=== PATIENT | female | born 1990 | race Caucasian/White ===

== ENCOUNTER 2020-10-23 10:02 | Outpatient (REF) | payer OTHER, SELFPAY ==
[2020-10-28 00:57] LABS: HPV 16 RNA NOT DETECTED (NOT DETECTED); HPV mRNA E6/E7 rflx Detected (Not Detected)
== END 2020-10-23 10:03 | disposition home or self-care (01) ==
LOC: HO.LAB 10:02
PROVIDERS: PCP Family Medicine; Visit Provider Advanced Practice Midwife
DX: Z12.4 Encounter for screening for malignant neoplasm of cervix (principal)
CPT/HCPCS: 36415; 87624; 87625; 88141; 88142

== ENCOUNTER 2021-10-29 09:17 | Outpatient (REF) | payer MEDICAID, SELFPAY ==
[2021-10-29 11:50] LABS: Thyroid Stimulating Hormone 0.88 uIU/mL (0.32-4.0)
[2021-11-01 01:45] LABS: HPV mRNA E6/E7 Not Detected (Not Detected)
== END 2021-10-29 09:18 | disposition home or self-care (01) ==
LOC: HO.LAB 09:17
PROVIDERS: PCP Family Medicine; Visit Provider Advanced Practice Midwife
DX: Z01.411 Encounter for gynecological examination (general) (routine) with abnormal findings (principal); Z11.51 Encounter for screening for human papillomavirus (HPV); R63.0 Anorexia; R63.5 Abnormal weight gain
CPT/HCPCS: 36415; 84443; 87624; 88142

== ENCOUNTER 2023-01-29 09:51 | Outpatient (REF) | payer OTHER, SELFPAY ==
[2023-01-29 18:31] LABS: CT PCR NOT DETECTED (Not Detect.); NG PCR NOT DETECTED (Not Detect.)
[2023-01-31 19:54] LABS: HPV 16 RNA NOT DETECTED (NOT DETECTED); HPV mRNA E6/E7 rflx Detected (Not Detected)
== END 2023-01-29 09:52 | disposition home or self-care (01) ==
LOC: HO.LNP 09:51
PROVIDERS: Visit Provider Advanced Practice Midwife
DX: Z01.419 Encounter for gynecological examination (general) (routine) without abnormal findings (principal); Z20.2 Contact with and (suspected) exposure to infections with a predominantly sexual mode of transmission; Z11.51 Encounter for screening for human papillomavirus (HPV)
CPT/HCPCS: 0353U; 87624; 87625; 88142

== ENCOUNTER 2023-02-24 11:04 | Outpatient (REF) | payer OTHER, SELFPAY | END 2023-02-24 11:05 | disposition home or self-care (01) | LOC: HO.LNP 11:04 | PROVIDERS: PCP Physician Assistant; Visit Provider Obstetrics & Gynecology | DX: R87.810 Cervical high risk human papillomavirus (HPV) DNA test positive (principal); R87.610 Atypical squamous cells of undetermined significance on cytologic smear of cervix (ASC-US) | CPT/HCPCS: 57454; 81025; 88305 ==

== ENCOUNTER 2023-03-19 10:48 | Outpatient (REF) | payer OTHER, SELFPAY | END 2023-03-19 10:49 | disposition home or self-care (01) | LOC: HO.LNP 10:48 | PROVIDERS: PCP Physician Assistant; Visit Provider Obstetrics & Gynecology | DX: R87.610 Atypical squamous cells of undetermined significance on cytologic smear of cervix (ASC-US) (principal); R87.810 Cervical high risk human papillomavirus (HPV) DNA test positive; Z71.2 Person consulting for explanation of examination or test findings | CPT/HCPCS: 81025; 88305; 99212 ==

== ENCOUNTER 2024-02-26 12:23 | Outpatient (AMB) | payer OTHER, SELFPAY ==
[2024-02-26 12:38] VITALS: BP 108/60; PULSE 73; O2SAT 95; BMI 28.5
--- NOTE | 2024-02-26 12:38 | MHC.PC.OV ---
Vital Signs 02/26/24 12:38 Height 5 ft 2 in Weight 156 lb BMI 28.5 BP 108/60 Blood Pressure Location Lt brachial Position Sitting Pulse 73 Pulse Source Pulse Oximeter Pulse Oximetry (%) 95 Oxygen Delivery Method Room Air Intake Visit Reasons: [employer]/Preventive care Allergies acetaminophen [Tylenol] Allergy (Unknown, Verified 02/26/24 12:44) hives Medication List - Last Reconciled 02/26/24 by DOMINIC Mann No Known Home Meds Dental Screening Dental Screen Date: 02/26/24 Did you have a dental visit in the last 12 months?: Yes Did you have a dental problem in the last 6 months where you did not have access to dental care?: No Was dental information given to patient?: Patient has dentist HPI HPI Comments History of Present Illness Details 33 y/o F with HPV Health Maintenance: Pap 01/29/23 Specialists: [facility] [facility] - wears glasses; [facility] routine visits Here today to est care and for CPE Mole on back that has been there for years; needs it looked at. First appt scheduled in [place] April 19, 2024 Irregular periods, 2 x month; wt gain. 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, who in January hard time transitioning to normal life PFSH Medical History (Updated 02/26/24 @ 13:17 by DOMINIC Mann) Weight gain Surgical History (Updated 02/26/24 @ 13:14 by DOMINIC Mann) S/P ACL repair Hx of wisdom tooth extraction Family History Father Diabetes mellitus Gastric cancer Mother Chronic mental illness Frontal lobe dementia Social History Housing: House Alcohol intake: current Alcohol intake frequency: holidays/special occasions only Patient Tobacco Use Status: Never used Tobacco e-Cigarette/Vaping Use: Never Used service: No Current occupational status: employed 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 1. Little interest or pleasure in doing things: not at all 2. Feeling down, depressed, or hopeless: not at all 3. Trouble falling or staying asleep, or sleeping too much: not at all 4. Feeling tired or having little energy: several days 5. Poor appetite or overeating: several days 6. Feeling bad about yourself - or that you are a failure or have let yourself or your family down: not at all 7. Trouble concentrating on things, such as reading the newspaper or watching television: not at all 8. Moving or speaking so slowly that other people could have noticed. Or the opposite - being so fidgety or restless that you have been moving around a lot more than usual: not at all 9. Thoughts that you would be better off or of hurting yourself in some way: not at all Total score: 2 Depression Screening Interpretation: Negative Depression Screening Done: Yes 98413 - PHQ-9 Billing: Yes Source: Developed by Drs. Chay Lopez, Carlene Vazquez, Zachariah Ceja and colleagues, with an educational bisi from [employer]. Thrive Questionnaire Date Thrive assessed: 02/26/24 I am a: Patient What is your living situation today?: I have a steady place to live Within the past 12 months, did the food you bought not last and you didn't have the money to get more?: Never true Within the past 12 months, did you worry whether your food would run out before you got money to buy more?: Never true Do you have trouble paying for medicines?: No Do you have trouble getting transportation to medical appointments?: No Do you have trouble paying your heating and electricity bill?: No Do you have trouble taking care of your child, family member or friend?: No Do you have trouble with day-to-day activities such as bathing, preparing meals, shopping, managing finances, etc.?: No Are you currently unemployed and looking for a job?: No Are you interested in more education?: No Please select the resources that you would like help with: None THRIVE Score: 0 AUDIT C Alcohol Use Questionnaire (AUDIT-C) 1. How often do you have a drink containing alcohol?: Never Total Score: 0 Score Reviewed/Action Taken: Yes LUKE-7 AMB Questionnaire LUKE-7 Date LUKE - 7 assessed: 02/26/24 Feeling nervous, anxious, or on edge: 0 = Not at all Not being able to stop or control worryin = Not at all Worrying too much about different things: 0 = Not at all Trouble relaxin = Not at all Being so restless that it is hard to sit still: 0 = Not at all Becoming easily annoyed or irritable: 1 = Several days Feeling afraid as if something awful might happen: 0 = Not at all Total LUKE-7 score (0-4 normal; 5-9 mild; 10-14 moderate; 15-21 severe): 1 Source: Developed by Drs. Chay Lopez, Carlene Vazquez, Zachariah Ceja and colleagues, with an educational bisi from [employer]. Review of Systems Const Details: Constitutional: Denies fever. Skin: Denies rash. Eye: Denies eye pain. ENMT: Denies sore throat and nasal congestion. Respiratory: Denies shortness of breath and cough. Gastrointestinal: Denies nausea, vomiting or abdominal pain. Cardiovascular: Denies chest pain and syncope. Genitourinary: Denies dysuria. Musculoskeletal: Denies back pain and extremity pain. Neurologic: Denies headaches, confusion, and weakness. Psychiatric: Denies suicidal thoughts and substance abuse. Allergy/ Immunologic: Denies impaired immunity. Physical exam (Primary Care) Tobacco/Smoking Status: Tobacco use Status Patient Tobacco Use Status Never used Tobacco 01/29/23 10:02 Depression Screening Interpretation: Negative Const Other: General: Well developed, well nourished, in no acute distress. Appears stated age. Head: Normocephalic, atraumatic. Eyes: Pupils are equal, round and reactive to light and accommodation. Conjunctivae are clear. Vision grossly normal. Ears: TMs clear AU, EACS WNL Nose: Patent, without discharge. Mouth: There are no ulcers or lesions noted. No inflammation, no post nasal drip, no plaques nor exudates. Neck: Supple, no adenopathy or thyromegaly. Lungs: Clear to auscultation bilaterally. No rales, rhonchi or wheeze noted. Good air flow in all garza. Heart: Regular rate and rhythm. No murmurs, click, rubs or gallops are noted. Abdomen: Bowel sounds present in all quadrants. The abdomen is soft, nontender, with no masses or organomegaly noted. No hernias are noted. Musculoskeletal: Joints are nontender, without swelling, redness, or effusions. Range of motion is observed to be normal. Pulses: Peripheral pulses are equal and palpable bilaterally. Extremities: No clubbing, cyanosis nor edema is noted. Neurologic: Gait and station normal. Cranial Nerves 2-12 intact. Motor strength grossly symmetrical and intact. No sensory loss. Balance normal. Skin: No rashes, ulcers. Raised brown mole located on back in between her shoulder blades. Turgor is good. Skin color is good. Hair and nails are without abnormalities. Psych: Normal eye contact, affect and mood appropriate, and normal interactions. Patient is alert and appropriate to context. Extremities: No clubbing, cyanosis or edema. Assessment and Plan Assessment & Plan (1) Encounter for general adult medical examination without abnormal findings: Code(s): Z00.00 - Encounter for general adult medical examination without abnormal findings (2) Laboratory exam ordered as part of routine general medical examination: Code(s): Z00.00 - Encounter for general adult medical examination without abnormal findings (3) Atypical mole: Comment: Referred to dermatology for evaluation and treatment Code(s): D22.9 - Melanocytic nevi, unspecified Orders: Orders LDL Cholesterol Direct Today Z00.00 - Encounter for general adult medical examination without abnormal findings Hemoglobin A1c Today Z00.00 - Encounter for general adult medical examination without abnormal findings Comprehensive Met. Panel Today Z00.00 - Encounter for general adult medical examination without abnormal findings TSH reflex Free T4 Today Z00.00 - Encounter for general adult medical examination without abnormal findings Vitamin D 1,25 dihydroxy Today Z00.00 - Encounter for general adult medical examination without abnormal findings Microalbumin, Random (w Creat) Today Z00.00 - Encounter for general adult medical examination without abnormal findings Referrals Dermatology Referral D22.9 - Melanocytic nevi, unspecified Patient Instructions: [email or web address] Use the [place] [facility] in [place] to review vaccines needed for trips. Health screenings for women ages 18 to 39 You should visit your health care provider from time to time, even if you are healthy. The purpose of these visits is to: Screen for medical issues Assess your risk for future medical problems Encourage a healthy lifestyle Update vaccinations and other preventive care services Help you get to know your provider in case of an illness Information Even if you feel fine, you should still see your provider for regular checkups. These visits can help you avoid problems in the future. For example, the only way to find out if you have high blood pressure is to have it checked regularly. High blood sugar and high cholesterol levels also may not have any symptoms in the early stages. A simple blood test can check for these conditions. There are specific times when you should see your provider or receive specific health screenings. The [place] Preventive Services Task Force publishes a list of recommended screenings. Below are screening guidelines for women ages 18 to 39. BLOOD PRESSURE SCREENING Your blood pressure should be checked at least once every 3 to 5 years if: Your blood pressure is in the normal range (top number less than 120 mm Hg and bottom number less than 80 mm Hg) You don't have risk factors for high blood pressure Ask your provider if you need your blood pressure checked more often if: The top number is 120 to 129 mm Hg or the bottom number is 70 to 79 mm Hg You have diabetes, heart disease, kidney problems, are overweight, or have certain other health conditions You have a first-degree relative with high blood pressure You are Black You had high blood pressure during a If the top number is 130 mm Hg or greater or the bottom number is 80 mm Hg or greater, this is considered stage 1 hypertension. Schedule an appointment with your provider to learn how you can reduce your blood pressure. Watch for blood pressure screenings in your area. Ask your provider if you can stop in to have your blood pressure checked. BREAST CANCER SCREENING Experts do not agree about the benefits of breast self-exams in finding breast cancer or saving lives. Talk to your provider about what is best for you. A screening mammogram is not recommended for most women under age 40. Your provider may discuss and recommend mammograms, MRI scans, or ultrasounds if you have an increased risk for breast cancer, such as: A mother or sister who had breast cancer at a young age (most often starting screening earlier than the age the close relative was diagnosed) You carry a high-risk genetic marker CERVICAL CANCER SCREENING Cervical cancer screening should start at age 21 years unless your provider advises otherwise. After the first test: Women ages 21 through 29 should have a Pap test every 3 years. Exoprts do not agree on whether HPV testing is recommended for this age group. Women ages 30 through 65 should be screened with either a Pap test every 3 years or the HPV test every 5 years or both tests every 5 years (called cotesting ). Women who have been treated for precancer (cervical dysplasia) should continue to have Pap tests for 20 years after treatment or until age 65, whichever is longer. If you have had your uterus and cervix removed (total hysterectomy), and you have not been diagnosed with cervical cancer or precancer (high grade cervical neoplasia), you do not need cervical cancer screening. CHOLESTEROL SCREENING Cholesterol screening should begin at: Age 45 for women with no known risk factors for coronary heart disease Age 20 for women with known risk factors for coronary heart disease Repeat cholesterol screening should take place: Every 5 years for women with normal cholesterol levels More often if changes occur in lifestyle (including weight gain and diet) More often if you have diabetes, heart disease, kidney problems, or certain other conditions DIABETES SCREENING You should be screened for diabetes starting at age 35 and then repeated every 3 years if you have no risk factors for diabetes. Screening may need to start earlier and be repeated more often if you have other risk factors for diabetes, such as: You have a first degree relative with diabetes. You are overweight or have obesity. You have high blood pressure, prediabetes, or a history of heart disease. Screening for diabetes should be done if you are planning to become and you are overweight and have other risk factors such as high blood pressure. DENTAL EXAM Go to the dentist once or twice every year for an exam and cleaning. Your dentist will evaluate if you need more frequent visits. EYE EXAM Have an eye exam every 5 to 10 years before age 40. If you have vision problems, have an eye exam every 2 years or more often if recommended by your provider. You should have an eye exam that includes an examination of your retina (back of your eye) at least every year if you have diabetes. IMMUNIZATIONS Commonly needed vaccines include: Flu shot: get one every year. COVID-19 vaccine: ask your provider what is best for you. Tetanus-diphtheria and acellular pertussis (Tdap) vaccine: have one at or after age 19 as one of your tetanus-diphtheria vaccines if you did not receive it as an adolescent. Tetanus-diphtheria: have a booster (or Tdap) every 10 years. Varicella vaccine: receive 2 doses if you never had chickenpox or the varicella vaccine. Hepatitis B vaccine: receive 2, 3, or 4 doses, depending on your exact circumstances. Measles, mumps, and rubella (MMR) vaccine: receive 1 to 2 doses if you are not already immune to MMR. Your provider can tell you if you are immune. Ask your provider about the human papillomavirus (HPV) vaccine if: You have not received the HPV vaccine in the past You have not completed the full vaccine series (you should catch up on this shot) Ask your provider if you should receive other immunizations if you have certain health problems that increase your risk for some diseases such as pneumonia. INFECTIOUS DISEASE SCREENING Women who are sexually active should be screened for chlamydia and gonorrhea up until age 25. Women 25 years and older should be screened for chlamydia and gonorrhea if at high risk. Screening for hepatitis C: All adults ages 18 to 79 should get a one-time test for hepatitis C. people should be screened at every . Screening for human immunodeficiency virus (HIV): All people ages 15 to 65 should get a one-time test for HIV. Depending on your lifestyle and medical history, you may also need to be screened for infections such as syphilis and HIV, as well as other infections. PHYSICAL EXAM All adults should visit their provider from time to time, even if they are healthy. The purpose of these visits is to: Screen for disease Assess your risk of future medical problems Encourage a healthy lifestyle Update your vaccinations and other preventive care services Maintain a relationship with a provider in case of an illness Your height, weight, and BMI should be checked at every exam. During your exam, your provider may ask you about: Depression and anxiety Diet and exercise Alcohol and tobacco use Safety issues, such as using seat belts, smoke detectors, and intimate partner violence Your medicines and risk for interactions SKIN SELF-EXAM Your provider may check your skin for signs of skin cancer, especially if you're at high risk, such as if you: Have had skin cancer before Have close relatives with skin cancer Have a weakened immune system OTHER SCREENING Talk with your provider about colon cancer screening if you have a strong family history of colon cancer or polyps, or if you have had inflammatory bowel disease or polyps yourself. Routine bone density screening of women under 40 is not recommended. Coding Level of Care Code New Pt Prev Care 18-39yr(94821 Diagnoses Encounter for general adult medical examination without abnormal findings Z00.00 Laboratory exam ordered as part of routine general medical examination Z00.00 Atypical mole D22.9
== END 2024-02-26 13:14 | disposition home or self-care (01) ==
PROVIDERS: PCP Physician Assistant; Visit Provider Nurse Practitioner Family
DX: Z00.00 Encounter for general adult medical examination without abnormal findings (principal); D22.9 Melanocytic nevi, unspecified
CPT/HCPCS: 99385

== ENCOUNTER 2024-02-27 10:32 | Outpatient (REF) | payer OTHER, SELFPAY ==
[2024-02-27 12:23] LABS: Estimated Average Glucose 103 mg/dL; Hemoglobin A1c % 5.2 % (<6.0)
[2024-02-27 12:58] LABS: Alanine Aminotransferase 20 U/L (0-31); Albumin Level 4.7 g/dL (3.5-5.0); Alkaline Phosphatase 74 U/L (39-117); Anion Gap 15 (12-20); Aspartate Amino Transferase 21 U/L (5-31); Bilirubin Total 1.3 mg/dL (0.0-1.0); Blood Urea Nitrogen 10 mg/dL (9-16); Calcium 9.7 mg/dL (8.4-10.2); Carbon Dioxide 24 mmol/L (22-29); Chloride 104 mmol/L (96-108); Estimated Glomerular Filt Rate > 60; Glucose Random 86 mg/dL (60-115); Potassium 3.7 mmol/L (3.3-5.1); Sodium 139 mmol/L (135-145); TSH reflex Free T4 0.99 uIU/mL (0.32-4.0); Total Protein 7.6 g/dL (6.5-8.0)
[2024-02-27 13:29] LABS: Creatinine Urine 11.87 mg/dL; Microalbumin Urine < 5.0 mg/L
[2024-02-28 16:29] LABS: LDL Cholesterol Direct 82 mg/dL (<100)
[2024-03-06 14:13] LABS: VITAMIN D (1,25 OH) D3 32 pg/mL; Vit D (1,25-Dihydroxy) Total 32 pg/mL (18-72); Vitamin D (1,25 OH) D2 <8 pg/mL
== END 2024-02-27 10:33 | disposition home or self-care (01) ==
LOC: HO.LAB 10:32
PROVIDERS: PCP Nurse Practitioner Family; Visit Provider Nurse Practitioner Family
DX: Z00.00 Encounter for general adult medical examination without abnormal findings (principal)
CPT/HCPCS: 36415; 80053; 82043; 82570; 82652; 83036; 83721; 84443

== ENCOUNTER 2024-04-19 12:32 | Outpatient (AMB) | payer OTHER, SELFPAY ==
--- NOTE | 2024-04-19 12:32 | A.OFFPC_ITS ---
Intake Visit Reasons: Urinary tract infection Allergies acetaminophen [Tylenol] Allergy (Unknown, Verified 04/19/24 12:36) hives Medication List - Last Reconciled 04/19/24 by DOMINIC Mann No Known Home Meds Dental Screening Dental Screen Date: 02/26/24 HPI HPI Comments History of Present Illness Details Telehealth visit today for urinary complaints. Reports that she was in her normal state of health until Friday when she developed urinary frequency, urgency and pressure that develops at the end of voiding. She called the on- call doctor and was advised to take azo. She took 3 doses on Friday and 3 doses on Friday. She also increased her hydration status. Unfortunately she continues with the same urinary symptoms. Today she did develop a vaginal itch. She just completed her menses. She just started using a menstrual cup and wonders if this caused any of her urinary symptoms. She was also at the beach and wonders if this contributed at all. Denies fever, chills, abdominal pain, back pain, nausea/vomiting. Plan Empirically treat with nitrofurantoin 1 tab p.o. b.i.d. x3 days. [place] hydration and vaginal hygiene encouraged. If she continues to have vaginal itch 2 days after completion of antibiotics did send in a 1 time dose of fluconazole 150 mg. She should take this. If 3 days after taking this medication her symptoms are not fully resolved, she will need to come to the office for an evaluation. If she does not have any sx after the AB no need to take the fluconazole. 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 Chay Lopez, Carlene Vazquez, Zachariah Ceja and colleagues, with an educational bisi from [employer]. Physical exam (Primary Care) Tobacco/Smoking Status: Tobacco use Status Patient Tobacco Use Status Never used Tobacco 02/26/24 12:44 e-Cigarette/Vaping Use Never Used 02/26/24 12:58 Thrive Assessment: Date of Thrive Assessment Date Thrive assessed 02/26/24 02/26/24 13:19 Telehealth Telehealth Telehealth Platform: Telephone Location of provider rendering services: practice address Location of patient: address on file Patient Identification confirmed using: Name, : Yes Telehealth method: voice only Patient verbally consented to treatment: Yes Patient verbally consented to billing insurance company: Yes Patient informed of any privacy concerns related to visit: Yes Minutes spent on Phone/Video with Pt.: 11 Assessment and Plan Assessment & Plan (1) UTI symptoms: Code(s): R39.9 - Unspecified symptoms and signs involving the genitourinary system (2) Vaginal itching: Code(s): N89.8 - Other specified noninflammatory disorders of vagina Medications: New nitrofurantoin monohyd/m-cryst 100 mg must administer with a meal/food 100 mg PO Q12H 3 days 6 caps 0RF fluconazole 150 mg PO DAILY 1 day 1 tab 0RF Coding Level of Care Code Est Pt Level 2 (54682) Diagnoses UTI symptoms R39.9 Vaginal itching N89.8
--- OUTSIDE RECORDS SUMMARY | 2024-04-19 12:33 | XMS_ITS | Continuity of Care Document ---
Author Organization [facility] Address [address] [place] [address]- Care Team Providers Care Conveyor [employer] Name Role Phone Patsy Pardo Primary Care Physician Encounter [facility] Date(s): 07/09/23 - 07/09/[address] [id number]- Discharge Disposition: A-D/C Home Attending Physician: Michael Mcconnell MD Admitting Physician: Michael Mcconnell MD Referring Physician: Michael Mcconnell MD Allergies, Adverse Reactions, Alerts Substance Reaction Severity Status acetaminophen Active Immunizations Given and Recorded Vaccine Date Status Refusal Reason tetanus/diphtheria/pertussis, acel(Tdap) 11/18/19 Given Medications Oxycodone 5mg Oral Tablet (PACU ONLY) 10 mg, Tablet, By Mouth, Once, in PACU ONLY, PRN for Pain , Moderate, Routine, 07/09/23 9:02:00 EDT Start Date: 07/09/23 Stop Date: 07/09/23 Status: Completed Problem List Condition Confirmation Course Effective Dates Status Health St atus Informant Back skin lesion Confirmed Active Vital Signs Most recent to oldest [Reference Range]: 1 2 3 Oxygen Saturation [94-100 %] 99 % (07/09/23 1:30 PM) 99 % (07/09/23 1:15 PM) 99 % (07/09/23 1:00 PM) Pulse Rate [55-90 bpm] 71 bpm (07/09/23 7:28 AM) Blood Pressure [90-138/55-84 mm Hg] 118/74mm Hg (07/09/23 1:30 PM) 118/74mm Hg (07/09/23 1:15 PM) 117/64mm Hg (07/09/23 1:00 PM) Respiratory Rate [16-30 br/min] 15 br/min *L* (07/09/23 1:39 PM) 17 br/min (07/09/23 1:15 PM) 19 br/min (07/09/23 1:00 PM) Temperature [96.8-100.4 DegF] 97.4 DegF (07/09/23 1:30 PM) 97.2 DegF (07/09/23 10:05 AM) 99.3 DegF (07/09/23 7:28 AM) Liters per Minute 6 L/min (07/09/23 10:15 AM) 6 L/min (07/09/23 10:10 AM) 6 L/min (07/09/23 10:05 AM) Mode of Delivery (Oxygen) Room air (07/09/23 1:30 PM) Room air (07/09/23 1:15 PM) Room air (07/09/23 1:00 PM) Blood pressure sites Arm, right (07/09/23 10:05 AM) Temperature Route Temporal (07/09/23 1:30 PM) Temporal (07/09/23 10:05 AM) Temporal (07/09/23 7:28 AM) Dry Weight 71.7 kg (07/09/23 7:28 AM) Social History Social History Type Response Smoking Status Never (less than 100 in lifetime) entered on: 11/18/19 Sex History and physical note * Jayesh AHUMADA, Michale S: PERFORM Event Display: History and Physical Hospital Authored Date: Patient: ??SHY BRAMBILA ? Age:??32 Years?Sex:??Female?:??1990?? Patient Visit Note CC: Right knee ACL tear HPI: Patient is a 32-year-old female here today for H&P visit for upcoming ACL reconstruction surgery. Injury occurred while she was playing soccer January 14, 2023. Patient believes injury occurred when her left foot was planted and her right foot was in an extended position and she was hit on the lateral side by another player's cleat. MRI was obtained demonstrating complete ACL tear. Recommended ACL reconstruction. Patient requested to have surgery in the fall. She was referred for preoperative therapy which has been helpful. She has not had any pain or swelling. Full range of motion. She has been doing light strength training and cardio. PMH: Denies PSH: Denies ALLERGIES: Acetaminophen (hives/itchy throat) She denies any allergy to NSAIDs or aspirin. SOCIAL:?? Participates in [employer] soccer league. Nonsmoker. ?? 14 Point ROS conducted and negative except as mentioned in HPI Family history reviewed and noncontributory to HPI ? PHYSICAL EXAM: Height and weight recorded on intake form GEN: NAD, Resting comfortably PSYCH: A+Ox3, appropriate mood and affect CARDIAC: RRR CHEST: No labored respirations, no wheezing ABDOMEN:?? Non distended ? Knee SIDE: Right INSPECTION: No effusion, normal alignment, no ecchymosis PALPATION:?? no medial or lateral joint line tenderness. No tender to palpation popliteal fossa LOWER EXTREMITY EXAM: unremarkable, no motor or sensory deficits AROM:?0-135 degrees with pain-free range of motion without crepitus Stable to varus and valgus stress testing at 0 and 30 degrees Grade 2B Barney, positive anterior drawer, negative posterior drawer, negative pivot shift Negative Vannessa ?? SIDE: Right ROM is full, stability intact?? both anterior, posterior, and varus/valgus stress at both 0 and 30 degrees of flexion. No meniscal tenderness. Negative Vannessa's maneuver. No crepitus,no effusion, 5/5 strength. ?? X-rays Bilateral knee weight bearing AP , [place], and lateral view of Right knee obtained on 2022: Maintained joint space medial, lateral, and patellofemoral compartments.?? small suprapatellar effusion, no loose body seen. ?? MRI right knee obtained on January 23, 2023: There is a complete ACL tear avulsed off the proximal femoral attachment. PCL intact. Medial and lateral meniscus intact. Impaction fracture posterior tibia with?? bony contusion. Positive effusion. ?? Impression:?? Right knee ACL tear ?? Plan: Reviewed diagnosis with the patient today. We discussed various treatment options including nonoperative management consisting of activity modification and bracing or surgery:Right knee arthroscopy, ACL reconstruction with quadriceps autograft, and alternative procedures. 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 We reviewed the proposed procedure, reasonable expectations,?? anticipated rehabilitation timeline, and restrictions. Risks, benefits, and alternatives of the procedure were discussed at length with the patient. Risks discussed included but were not limited to bleeding, infection, damage toneurovascular structures, pain after surgery, knee stiffness, graft rerupture, instability, inability to return to previous level of activity, progression of osteoarthritis, medical and anesthesia related complications, and thromboembolic events. Patient had a chance to have all questions answered today and wishes to move forward with surgical scheduling.She has completed preoperative physical therapy. Crutches and hinged knee brace has been provided. Surgery scheduled for next month. Patient inquired about CPM use post op as she struggled with knee stiffness after her injury. We discussed that this would be an option if she would desire though not not typically necessary. Note * Brandon Bonilla RN: PERFORM Event Display: Patient Education/Instruction Authored Date: [id number] In[place] [address] Name: SHY BRAMBILA : 1990 Visit: 07/09/2023 07:07:00 Current Date: 07/09/2023 11:04 Account: [id number] Inpatient Adult Discharge Instructions We would like to thank you for allowing us to assist you with your healthcare needs. The following includes patient education materials and information regarding your injury/illness. Our entire staffstrives to provide an excellent experience for our patients and their families. PLEASE ENSURE YOU FOLLOW-UP PER THE INSTRUCTIONS BELOW! ?? YOUR OPINION IS IMPORTANT TO US! Please complete the survey you may receive by mail or email. Your feedback will be used to make improvements to the healthcare experiences of our patients and their families. Surveys are administered by [employer] ?? If further treatment with your primary care physician or another doctor is recommended, it is important for you to keep the appointment. Call your primary care physician or return to the Emergency Department immediately if your condition worsens, fails to improve, or new symptoms develop. If you need to find a doctor, you can call [facility] [employer] Link for a referral at [phone] or toll free at [phone] ([phone]) or log in to [email or web address].. ?? [facility], in keeping with [facility] guidance, no longer requires face masks for staff, patientsor visitors in most situations. Similiar to time spent indoors at other locations, there is the chance that you were exposed to repiratory viruses during your time with us (such as flu or COVID-19). If you develop symptoms concerning for a viral respiratory infection, please seek testing (and treatment if indicated) from your medical provider or home test kit. ?? You can view and manage your care through the patient portal or by using a health care gema of your choosing. [employer] is a website that allows you to securely view your medical information including your hospital discharge summary, office visit summaries, medications and follow-up visits. You can also request appointments, renew medications, and request access to your medical information using a health care gema of your choosing, or just ask a question. You can enroll at [email or web address] or register during your next office visit. You have been discharged from [facility], Patient Care Unit: [facility]. If you have any questions regarding these instructions after you leave, please call us and we will be happy to assist you. [facility] Your Care Team Attending Physician Michael Mcconnell MD Consulting Providers Nora Hilton MD Discharging Providers Michael Mcconnell MD Reason for Admission right knee pain Primary Care Provider Patsy Pardo Advance Directive Health Care Proxy on File No What to do next Instructions from your Care Team Follow Dr. Mcconnell's discharge instructions. for pain:?? Ibuprofen 400mg every 4 hrs or 600mg every 6 hrs as needed for pain Oxycodone 5mg every 6 hrs as needed for pain, you can take this anytime, just keep 6 hrs between doses. Cryocuff-refill water/ice container as needed.?? Keep applied for first 2 days, then use every 2-3 hrs for 20-30 minutes until seen in office. Dressing: You may loosen and re-apply as needed.?? Try to keep dry until seen by Dr. Mcconnell, if it becomes wet or soiled, call his office for directions. Scheduled Follow-Up Appointments Friday 3:20 PM EST ?? With: Patsy Pardo Where: [facility] [address] [facility] [address] [place] [address]- Status: Pending Discharge Medications SHY BRAMBILA :1990 Visit Date:07/09/2023 Medications: Please continue your medications until treatment is completed or stopped by your provider. Medications not listed below should be discontinued. Discuss any questions related to medications with your provider. Test Results Below is a partial list of the most recent Laboratory test results done prior to this discharge. You may have had other tests and procedures not included in this list. Please discuss all test resultswith your provider. HCG Urine (07/09/2023) ???Urine, - NEGATIVE Allergies (NKA means No Known Allergies) acetaminophen Education Materials Below is the list of Educational Leaflet Providered with your Discharge Instructions. Surgery for Anterior Cruciate Ligament (ACL) Injury?? Surgery Medical Daystay Surgical Overnight Discharge Instructions?? Oxycodone Oral Tablet?? Ibuprofen Oral Tablet?? Docusate Oral Capsule?? Discharge Instructions for Knee Arthroscopy?? Valuables and Belongings I fully understand and agree that [facility] accepts no responsibility for all my personal property including clothing, toilet articles, radios, jewelry, dentures, hearing aids, rings, money, or any other property that is in my possession or is brought to me after admission. I understand certain valuables may be placed in a hospital safe for a short period of time. I understand that the hospital is not liable for loss or damage due to accident, fire, or other natural occurrence while said property is in the safe. I accept full responsibility for any personal property that I keep with me, and will not hold the hospital responsible in case of loss or disappearance. I acknowledge that i have been encouraged to send valuables and belongings home. ?? Review of Valuable and Belonging List: With patient Date for Pt to Sign Valuables/Belongings: 07/09/23 07:28:00 ?? Valuables & Belongings ?? Clothes Electronic devices Jewelry Monetary Items Personal devices Miscellaneous Medications (Valuables) Valuables at Bedside Pants, Shirt, Shoes, Undergarments ? Glasses ? Valuables Sent Home ? Valuables Sent to Security ? Common Emergency Awareness Tips IS IT A STROKE? Act FAST and Check for these signs: FACE Does the face look uneven? ARM Does one arm drift down? SPEECH Does their speech sound strange? TIME Call at any sign of stroke ?? Heart Attack Signs Chest discomfort: Most heart attacks involve discomfort in the center of the chest and lasts more than a few minutes, or goes away and comes back. It can feel like uncomfortable pressure, squeezing, fullness or pain. Discomfort in upper body: Symptoms can include pain or discomfort in one or both arms, back, neck, jaw or stomach. Shortness of breath: With or without discomfort. Other signs: Breaking out in a cold sweat, nausea, or lightheaded. Remember, MINUTES DO MATTER. If you experience any of these heart attack warning signs, call to get immediate medical attention! ?? Smoking can increase your chances of developing chronic health problems and can cause harmful effects to other family members in your house. If you smoke, you are strongly encouraged to quit. Please call [facility] [employer] Link at [phone] or [phone] ([phone]) or log in to [email or web address] for referrals to smoking cessation programs. ?? 818 Suicide & Crisis Lifeline is available 12/05 if you or someone you know needs to find a reason to keep living. By calling 134 you'll be connected to a skilled, trained counselor at a crisis center in your area. INPATIENT DISCHARGE INSTRUCTIONS SIGNATURE PAGE SHY BRAMBILA Location:[facility] Registration Date and Time:07/09/2023 07:07 EDT Primary Care Physician: Patsy Pardo, Attending Physician: Jayesh AHUMADA, Michael Dominguez, I SHY BRAMBILA, have received the above patient education materials/instructions and have verbalized understanding. If ambulance or transport services are being used I further acknowledge being given a choice of service. ?? If you need to contact me, please call me at this number: . Patient/Procedure Manager Name: Patient/Procedure Manager Signature: Relationship to Patient: Witness Name/Signature: Date: * Brandon Bonilla RN: PERFORM Event Display: Patient Education Leaflets Authored Date: [id number] Surgery for Anterior Cruciate Ligament (ACL) Injury ?? [address]484 Surgery for Anterior Cruciate Ligament (ACL) Injury The ACL (anterior cruciate ligament) is a band of tough, fibrous tissue that helps stabilize the knee. Injury to this ligament often??happens when the knee is forced beyond its normal range of motion. This can stretch or tear the ligament, much like the fibers of a rope coming apart. Both surgical and nonsurgical treatment has been used to recover from an ACL tear. Several types of surgery are available based on you and your healthcare provider's preferences, as well as other factors. Some surgeons will operate soon after an ACL tear. Others prefer several weeks of physical therapy first. There are also different anesthesia choices available. Preparing for surgery Do's and don'ts: ??? Stop taking aspirin and other blood thinning medicines 7 or more days before surgery as advised by your healthcare provider. ??? Arrange to get crutches to use during recovery. ??? Follow any directions you are given for not eating or drinking before surgery. ??? Arrange for anadult to drive you home after surgery.? During surgery The most common type of surgery for an ACL injury is reconstruction. Several types of surgeries areused: ??? Patellar tendon graft. This uses a piece of your own patellar tendon between the kneecap and tibia. ??? Quadriceps tendon graft. This uses a piece of your own quadriceps tendon between the quadriceps muscle and the knee cap. ??? Hamstring tendon graft. This uses a piece of your own hamstring tendon between the hamstring muscle and the tibia. ??? A cadaver (allograft) tendon graft. This uses??any one of several tendons from a cadaver. To rebuild your ACL, your surgeon may do open surgery or arthroscopy. During arthroscopy, a long, thin tube with a tiny camera is inserted into the knee joint so your surgeon can see inside the joint. Tools inserted through small incisions are used to repair the joint. ?? After surgery Here is what to expect: ??? You???ll spend a few hours in a recovery area. You???ll have ice on your knee to prevent swelling, and your leg may be in a brace. ??? You may get a continuous cooling machine to relieve swelling and pain. ??? You may get medicines to reduce pain and swelling. Take theseas prescribed by your healthcare provider. ??? Depending on the procedure, physical therapy may begin shortly after surgery. This may include light exercises. In some cases, you may use a CPM (continuous passive motion) machine for a time. This machine flexes and extends the knee, keeping it from getting stiff. ??? You can usually go home the same day as surgery. Have an adult family member or fri end give you a ride. ?? Last Reviewed Date: 2021 ?? [employer]. All rights reserved. This information is not intended as a substitute for professional medical care. Always follow your healthcare professional's instructions. ?? * Brandon Bonilla RN: PERFORM Event Display: Patient Education Leaflets Authored Date: [id number] Surgery Medical Daystay Surgical Overnight Discharge Instructions ?? 295 Medical Daystay/Surgical Overnight Discharge Instructions ? Since your coordination and judgment may be altered by medication and/or anesthesia, a responsible adult must drive you home from the hospital. ? If you have received medication for pain or sedation while under our care, you should not drive, operate machinery, drink alcohol, or sign any legal documents for 24 hours.?? You should have someone with you at home tonight. ? Remain at home the day of discharge.?? You may be up and about unless otherwise instructed by your physician. ? You may resume your daily prescription medication schedule.?? Any depressant medication should be avoided for 24 hours unless otherwise instructed by your surgeon or anesthesiologist. ? Call your physician for a follow-up appointment.? If you experience unusual or severe pain not relied by your pain medication, excessive bleedingor drainage, persistent nausea and vomiting, excessive swelling or redness, foul odor from incisionsite or fever over 100.6F, you need to call your physician. ? A follow-up phone call by a nurse will be made the day after your procedure.?? If you have stayed with us over night, you will not be receiving a follow-up phone call. ? Nausea and vomiting are a common side effect of prescription pain medication.?? We recommend that pills are not taken on an empty stomach.?? While taking any prescription pain medication you should not drive or drink alcohol. ? * Brandon Bonilla RN: PERFORM Event Display: Patient Education Leaflets Authored Date: [id number] Oxycodone Oral Tablet ?? [id number] Oxycodone Oral Tablet Brands: Roxicodone Uses For pain. ?? Instructions This medicine may be taken with or without food. Swallow with a full glass (8 oz) of water unless your doctor gives you different instructions. Store at room temperature away from heat, light, and moisture. Do not keep in the bathroom. Please ask your doctor, nurse, or pharmacist how to discard unused medicines safely. To reduce constipation, eat high fiber foods, drink plenty of water and exercise. Avoid grapefruit juice while on this medicine. Drug interactions can change how medicines work or increase risk for side effects. Tell your healthcare providers about all medicines taken. Include prescription and [id number]-nro-mrvxwqm medicines, vitamins, and herbal medicines. Speak with your doctor or pharmacist before starting or stopping any medicine. Tell your doctor if symptoms do not get better or if they get worse. ?? Cautions This medicine has an opioid. Opioids help many people but may cause addiction, especially if used for a long time. The addiction risk is higher if you have a substance use disorder (overuse of or addiction to drugs or alcohol). Ask your doctor about the benefits and risks. Ask your doctor or pharmacist if you should have naloxone on hand to treat opioid overdose. Teach your family or household members about the signs of an opioid overdose and how to treat it. If you stop this medicine suddenly after using it for a long time, you may have withdrawal. Your doctor may slowly lower your dose before stopping it. Tell your doctor right away if you have symptoms, such as unusual sweating, watering eyes, runny nose, chills, diarrhea, yawning, muscle aches, restlessness, anxiety, trouble sleeping, or thoughts of suicide. Tell your doctor and pharmacist if you ever had an allergic reaction to a medicine. Do not use the medication any more than instructed. If possible, avoid using with alcohol, marijuana, or other medicines that can cause dizziness or drowsiness. These include allergy/cold products, muscle relaxers, sleep aids, and pain relievers. Your ability to stay alert or to react quickly may be impaired by this medicine. Do not drive or operate machinery until you know how this medicine will affect you. This medicine passes into breast milk. Ask your doctor before . This medicine can hurt a new baby in the womb. If you become while on this medicine, tell your doctor immediately. Your doctor may switch you to a different medicine. This medicine should be used with caution in patients with breathing difficulties. Call your doctor right away if you notice slow or shallow breathing. Do not share this medicine with anyone who has not been prescribed this medicine. Some patients have serious side effects from this medicine. Ask your pharmacist to show you the information from the Food and Drug Administration (FDA) and discuss it with you. ?? Side Effects The following is a list of some common side effects from this medicine. Please speak with your doctor about what you should do if you experience these or other side effects. ??? decreased appetite ??? constipation ??? dizziness or drowsiness ??? lightheadedness ??? nausea and vomiting If you have any of the following side effects, you may be getting too much medicine. Please contactyour doctor to let them know about these side effects. ??? confusion ??? fainting ??? unusual or unexplained tiredness or weakness ??? difficulty or discomfort urinating Call your doctor or get medical help right away if you notice any of these more serious side effects: ??? agitated feeling or trouble sleeping ??? decreased awareness or responsiveness ??? breathing interruption during sleep ??? shallow, irregular breathing ??? changes in memory, mood, or thinking ??? hallucinations (unusual thoughts, seeing or hearing things that are not real) ??? seizures ??? severe stomach or bowel pain ??? weight loss A few people may have an allergic reaction to this medicine. Symptoms can include difficulty breathing, skin rash, itching, swelling, or severe dizziness. If you notice any of these symptoms, seek medical help quickly. ?? Extra Please speak with your doctor, nurse, or pharmacist if you have any questions about this medicine. ?? [email or web address] IMPORTANT NOTE: This document tells you briefly how to take your medicine, but it does not tell youall there is to know about it. Your doctor or pharmacist may give you other documents about your medicine. Please talk to them if you have any questions. Always follow their advice. There is a more complete description of this medicine available in [place]. Scan this code on your smartphone or tablet or use the web address below. You can also ask your pharmacist for a printout. If you have any questions, please ask your pharmacist. The display and use of this drug information is subject to Terms of Use. Copyright(c) 2022 [employer]. ?? [employer]. All rights reserved. This information is not intended as a substitute for professional medical care. Always follow your healthcare professional's instructions. ?? Patient Care team information Care Team Personnel Name: Patsy Pardo Position: S Associate Professional Member Role: PCP Address: Address: [address] [place] [address] Primary Care [place], [place] - Care Team Related Persons Name: STEPHANE BRAMBILA Address: home [address], [place] Name: ANCA BRAMBILA Address: home [address], [place]
--- OUTSIDE RECORDS SUMMARY | 2024-04-19 12:33 | XMS_ITS | Continuity of Care Document ---
Author Organization [facility] ter Address [address] [place] [id number]- Care Team Providers Care Traffic Officer Name Role Phone Terrie MARTINEZ, Camila I Primary Care Physician Encounter [facility] Date(s): 11/18/19 - 11/18/[address] [address]- [facility] Attending Physician: Not on Staff, Attending MD Allergies, Adverse Reactions, Alerts Substance Reaction Severity Status acetaminophen Active Immunizations Given and Recorded Vaccine Date Status Refusal Reason tetanus/diphtheria/pertussis, acel(Tdap) 11/18/19 Given Medications Pirmella oral tablet 1 tablet, By Mouth, Daily, 0 Refills, Maintenance, 11/18/19 11:33:00 EST Start Date: 11/18/19 Status: Ordered Social History Social History Type Response Smoking Status Never (less than 100 in lifetime) entered on: 11/18/19 Sex
== END 2024-04-19 16:55 | disposition home or self-care (01) ==
PROVIDERS: PCP Nurse Practitioner Family; Visit Provider Nurse Practitioner Family
DX: R39.9 Unspecified symptoms and signs involving the genitourinary system (principal); N89.8 Other specified noninflammatory disorders of vagina
CPT/HCPCS: 99212

== ENCOUNTER 2024-07-15 07:46 | Outpatient (REF) | payer OTHER, SELFPAY ==
[2024-07-16 11:16] LABS: Bacterial Vaginosis PCR POSITIVE (Negative); Candida Group PCR NOT DETECTED (Not Detect); Candida glab krusei PCR NOT DETECTED (Not Detect); Trichomonas vaginalis PCR NOT DETECTED (Not Detect)
[2024-07-20 13:35] LABS: HPV mRNA E6/E7 Not Detected (Not Detected)
== END 2024-07-15 07:47 | disposition home or self-care (01) ==
LOC: HO.LAB 07:46
PROVIDERS: PCP Nurse Practitioner Family; Visit Provider Advanced Practice Midwife
DX: Z01.419 Encounter for gynecological examination (general) (routine) without abnormal findings (principal); Z87.42 Personal history of other diseases of the female genital tract; N89.8 Other specified noninflammatory disorders of vagina
CPT/HCPCS: 0352U; 36415; 87624; 88175; 99395

== ENCOUNTER 2024-07-15 07:46 | Outpatient (AMB) | payer OTHER, SELFPAY ==
--- NOTE | 2024-07-15 07:52 | MHC.OFFVIS ---
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 Doing well with concerns: Emotional changes prior to menses, slight perineal irritation with menses, wears external pads. She tries to eat healthy and stays active with exercise. Regular monthly menses. Currently is not sexually active. STI screening offered; she declines. Denies family history of breast, ovarian or colon cancer. Last pap smear history of ascus with positive HPV, ECC benign. She reports a plan move to [place] in August and will want to have her records for the move. 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 Current occupational exposures/hazards: No Sexual orientation: Straight/Heterosexual Gender identity: Female Cognitive needs: No Hearing needs: No Vision needs: No Female Reproductive History Menstrual Age of Menarche: 12 Duration of menses: 3-5 days Date of last menstrual period: 07/03/24 Full term: 0 Date of last pap smear: 01/29/23 (ascus +hpv) History of abnormal pap smear: Yes (11/09 +hpv 03/11 colpo) Review of Systems Const All systems reviewed & are unremarkable except as noted in HPI and below Reports as per HPI Eyes Reports no additional complaints ENT Reports no additional complaints Card Reports no additional complaints Resp Reports no additional complaints GI Reports as per HPI and Reports no additional complaints Reports as per HPI Musc Reports no additional complaints Skin/Breast Reports as per HPI Neuro Reports no additional complaints Psych Reports no additional complaints Endo Reports no additional complaints John/Lymph Reports no additional complaints Aller/Immun Reports no additional complaints Physical Exam Vital Signs: BMI result Body Mass Index 26.9 Const General: cooperative, healthy appearing, no acute distress, well developed and alert Orientation/consciousness: patient oriented x3 HEENT Head: Yes normal to inspection Eyes General: appearance normal, both eyes and all related structures Neck Neck: Yes normal visual inspection Thyroid: Thyroid normal Chest Chest palpation & inspection: normal inspection of the chest and other (no puckering, dimpling, peau de orange, retraction, discharge, masses) Breast/axilla inspection: normal inspection of the breasts Breast/axilla palpation: normal palpation of the breasts Resp Effort & Inspection: normal respiratory effort GI Inspection: Yes normal to inspection Palpation (GI): Soft to palpation Rectal Exam - Female: deferred General: Yes bladder normal to palpation External Female Exam: normal external appearance and normal appearance of the urethra Speculum Exam - Vagina: normal appearance of the vagina, normal palpation and normal vaginal discharge Speculum Exam - Cervix: normal appearance of the cervix and normal palpation Bimanual exam- vagina & uterus: normal bimanual exam, normal palpation, uterine size normal, bladder normal to palpation, normal palpation and non-tender Bimanual Exam- Adnexa, other: no masses Skin General skin exam: no rashes or lesions noted Rashes: no rashes Neuro General: patient oriented x3 Cognition (Neuro): normal cognition Extrem General: Yes normal to inspection Psych Attitude: cooperative Thought process: Normal thought process present Assessment & Plan Assessment & Plan (1) Encounter for well woman exam with routine gynecological exam: Code(s): Z01.419 - Encounter for gynecological examination (general) (routine) without abnormal findings Category: Medical (2) History of abnormal cervical Pap smear: Code(s): Z87.42 - Personal history of other diseases of the female genital tract Plan Discussed: Current recommendations for pap smears per ASCCP guidelines. Pap smear obtained today, await results for plan of care. BV panel obtained. Breast awareness and periodic breast exams. PMS symptoms reviewed, options of treatment-herbal, hormonal, SSRIs, she opts to observe for now. Maintain a healthy lifestyle including a well balanced diet and routine exercise. Use condoms for STI and prevention. Sign a release of records when ready to move can come in and fern picker a packet for travel. Patient verbalizes understanding and agrees to the plan of care. She was given opportunity to ask questions and all questions were answered to the best of my ability. 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 This note is constructed using voice recognition software. While every effort has been made to ensure accuracy, psych rn errors may have been included. Orders: Orders Bacterial Vaginosis Panel Today N89.8 - Other specified noninflammatory disorders of vagina PAP + HPV E6/E7 rfx 18/45 Today Z01.419 - Encounter for gynecological examination (general) (routine) without abnormal findings Coding Level of Care Code Est Pt Prev Care 18-39y(06059) Diagnoses Encounter for well woman exam with routine gynecological exam Z01.419 History of abnormal cervical Pap smear Z87.42
[2024-07-15 07:55] VITALS: BP 94/60; BMI 26.9
== END 2024-07-15 08:33 | disposition home or self-care (01) ==
PROVIDERS: PCP Nurse Practitioner Family; Visit Provider Advanced Practice Midwife
DX: Z01.419 Encounter for gynecological examination (general) (routine) without abnormal findings (principal); Z87.42 Personal history of other diseases of the female genital tract
CPT/HCPCS: 99395

== ENCOUNTER 2024-09-03 15:49 | Outpatient (AMB) | payer OTHER, SELFPAY ==
--- NOTE | 2024-09-03 16:15 | MHC.PC.OV ---
Intake Visit Reasons: Possible UTI - Rhonda [phone] Allergies acetaminophen [Tylenol] Allergy (Unknown, Verified 09/03/24 16:15) hives Medication List - Last Reconciled 09/03/24 by LENNY Mann-CYRUS metronidazole 0.75%(37.5mg/5gram) 1 appful vaginal DAILY 5 days Dental Screening Dental Screen Date: 02/26/24 HPI HPI Comments History of Present Illness Details Telehealth appointment for this 33-year-old female for urinary complaints. She called to report that she was having a lot of pressure and discomfort which she describes as similar to an episode that occurred over the summer. In April we did a telehealth visit. My note was reviewed. She was treated empirically with nitrofurantoin for 3 days. Her symptoms did entirely improve. At that time she was using a menstrual cup. Since this time she was stopped using. She recently had a visit with psychological stress evaluator. This was in June. The office visit note was reviewed. A BV swab was obtained and she was positive for bacterial vaginosis. The patient denies ever having any symptoms however she did treat with the metronidazole as directed. She is getting her periods. She is not sexually active. She denies any vaginal itching or discharge. She just wonders why the same symptoms recurred 3 months later. She started to treat herself with azo yesterday, last dose today, as this was advised in the past. 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 Therefore she worries about not having her symptoms treated before she leaves. Plan Advised for her to stop taking azo. Go to the [facility] walk-in tomorrow for a urinalysis with culture. This order has been placed. She should hydrate liberally. Okay to resume azo once the urine sample is obtained. I will follow up with her on Friday once the results are back. Of note she will not be available from 07-30 on Friday as she has a physical therapy appointment. Otherwise she is available the rest of the day. This note is constructed using voice recognition software. While every effort has been made to ensure accuracy in licensed marriage and family therapist, still errors may have been included Sometimes, these errors may affect the content or meaning of the given sentence . Total time spent caring for the patient today was 18 minutes. 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 Chay Lopez, Carlene Vazquez, Zachariah Ceja and colleagues, with an educational bisi from [employer]. Physical exam (Primary Care) Tobacco/Smoking Status: Tobacco use Status Patient Tobacco Use Status Never used Tobacco 04/19/24 12:36 e-Cigarette/Vaping Use Never Used 04/19/24 12:36 Thrive Assessment: Date of Thrive Assessment Date Thrive assessed 02/26/24 04/19/24 12:36 Telehealth Telehealth Telehealth Platform: [facility] Location of provider rendering services: practice address Location of patient: address on file Patient Identification confirmed using: Name, : Yes Telehealth method: voice only Patient verbally consented to treatment: Yes Patient verbally consented to billing insurance company: Yes Patient informed of any privacy concerns related to visit: Yes Minutes spent on Phone/Video with Pt.: 12 Coding Level of Care Code Est Pt Level 2 (70898) Complex EM visit Add On G2211 Diagnoses Dysuria R30.0 Assessment & Plan Assessment & Plan (1) Dysuria: Code(s): R30.0 - Dysuria Category: Medical Plan: . Plan . Orders: Orders UA CC w/rflx Micro + Cult Today R30.0 - Dysuria
== END 2024-09-03 16:30 | disposition home or self-care (01) ==
LOC: HO.HMCFM 15:49
PROVIDERS: PCP Nurse Practitioner Family; Visit Provider Nurse Practitioner Family
DX: R30.0 Dysuria (principal)

== ENCOUNTER → 2024-09-03 15:49 | Outpatient (BNVA) | payer OTHER, SELFPAY | PROVIDERS: PCP Nurse Practitioner Family; Visit Provider Nurse Practitioner Family | DX: R30.0 Dysuria (principal) | CPT/HCPCS: 99212 ==

== ENCOUNTER 2024-09-04 07:47 | Outpatient (REF) | payer OTHER, SELFPAY ==
[2024-09-04 11:29] LABS: Appearance Urine Clear; Color Urine Yellow; Glucose Urine UA Negative (Negative); Leukocyte Esterase Urine Trace (Negative); Nitrite Urine Negative (Negative); Specific Gravity - Urine 1.025 (1.005-1.025); UMIC TRIGGER UACC YES; Urine Blood Negative (Negative); Urine Ketones Negative (Negative); Urine Protein Negative (Neg-Trace)
[2024-09-04 11:42] LABS: Bacteria Urine Trace (None Seen); Hyaline Casts Urine 0-2 /LPF (0-2); RBC Urine 0-2 /HPF (0-2); UACC Culture Trigger YES
== END 2024-09-04 07:48 | disposition home or self-care (01) ==
LOC: HO.HMGCLDS 07:47
PROVIDERS: PCP Nurse Practitioner Family; Visit Provider Nurse Practitioner Family
DX: R30.0 Dysuria (principal)
CPT/HCPCS: 81001; 87086

== ENCOUNTER 2024-09-06 13:58 | Outpatient (AMB) | payer OTHER, SELFPAY ==
--- NOTE | 2024-09-06 15:34 | MHC.PC.OV ---
Intake Visit Reasons: fu urine Allergies acetaminophen [Tylenol] Allergy (Unknown, Verified 09/06/24 15:42) hives Medication List - Last Reconciled 09/06/24 by ABAD MannP- Dental Screening Dental Screen Date: 02/26/24 HPI HPI Comments History of Present Illness Details Patient was informed and verbally consented to the use of an ambient scribe for clinic note documentation during this visit. The patient is a 33-year-old female presenting with Urinary Symptoms that have previously resolved according to a recent urine test which showed no infection. The patient reports noticing these symptoms shorty after her menstrual cycle and has experienced changes in menstrual flow, with periods characterized by heavy clotting followed by light flow. The patient also described new onset itchiness and a feeling of vaginal discomfort evolving over the last few days. She is not , has suspended sexual activity, and noted a discontinuation of control well prior to these symptoms. The patient experienced a Pap smear showing bacterial vaginosis but was asymptomatic. Patient history is notable for starting new supplements around April or May and past use of a menstrual cup in May. Travel plans to [place] necessitate preparation with prophylactic medications in the event of symptom recurrence. ROS Genitourinary: Reports itchiness and vaginal discomfort. - Menstrual: Reports changes in flow and clotting. 1. Bacterial Vaginosis BV: - Initiate Metronidazole vaginal gel treatment at discretion. Discuss use in the case of symptom aggravation. 2. Vaginal Itchiness and Discomfort: - Prescribe Fluconazole for potential yeast infection as needed and recommend second dose after three days if symptoms persist. 3. Preventive Care for Travel: - Prescribe Nitrofurantoin to be used in the event of UTI-like symptoms during travel to [place]. Discussed with the patient the diagnosis of bacterial vaginosis, which can cause irritation and itching but does not pose serious health risks if untreated temporarily. We reviewed the absence of infection with recent negative urine culture and the implications for her symptoms. The patient expressed concern over recent menstrual changes and possible hormonal fluctuations, which were addressed by monitoring them for future gynecologic evaluation if necessary. She was advised on the use of prescribed medications during her travel and the importance of maintaining these on hand given the anticipated lack of access to healthcare outside the country. Consents were discussed concerning the use of Metronidazole gel, Fluconazole, and Nitrofurantoin for symptomatic relief, and patient showed understanding and agreement with the plan. - Use Metronidazole vaginal gel as directed if symptoms of irritation from BV persist. - Take Fluconazole for yeast infection symptoms and repeat in three days if necessary. - Use Nitrofurantoin as prescribed to manage UTI symptoms should they arise during travel. - Maintain a diary of menstrual cycles and any associated symptoms for ongoing observation. - Follow-up with a outreach associate after returning if symptoms persist or worsen. This note is constructed using voice recognition software. While every effort has been made to ensure accuracy in roof shingler, still errors may have been included Sometimes, these errors may affect the content or meaning of the given sentence . Total time spent caring for the patient today was 20 minutes. 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 Chay Lopez, Carlene Vazquez, Zachariah Ceja and colleagues, with an educational bisi from [employer]. Physical exam (Primary Care) Tobacco/Smoking Status: Tobacco use Status Patient Tobacco Use Status Never used Tobacco 09/03/24 16:15 e-Cigarette/Vaping Use Never Used 09/03/24 16:15 Thrive Assessment: Date of Thrive Assessment Date Thrive assessed 02/26/24 09/03/24 16:15 Telehealth Telehealth [facility]health [facility] Location of provider rendering services: practice address Location of patient: address on file Patient Identification confirmed using: Name, : Yes Telehealth method: voice only Patient verbally consented to treatment: Yes Patient verbally consented to billing insurance company: Yes Patient informed of any privacy concerns related to visit: Yes Minutes spent on Phone/Video with Pt.: 14 Results Reviewed Results Reviewed: RUN: 09/06/24756 PAGE 1 [facility] [address] [place] [address] Dewaxer: Dre Ortega M.D. Specimen Inquiry Name: Kiesha Chen Age/Sex: 33/F : 1990 Unit#: [id number] Attend Dr: Kathryn Montes Re09/04/24 Status: DEP REF Location: [facility] Disch: SPEC : [id number] DONY: 09/04/24 STATUS: COMP REQ : [id number] RECD: 09/04/[address]: Kathryn Montes COMP: 09/04/24 ENTERED: 09/04/[address]: [facility] QUERIES: Source: Urine, Clean Catch Test Result Flag Reference Ur Color Yellow Ur Appear Clear PH 6.0 5.0-9.0 Ur Glu Negative Negative mg/dL Urine Blood Negative Negative Spec [place] Ur 1.025 1.005-1.025 Urine Protein Negative Neg-Trace mg/dL Urine Ketones Negative Negative mg/dL Ur Nitrite Negative Negative Ur Ben Esterase Trace H Negative Ur RBC 0-2 0-2 /HPF Ur WBC 6-10 H 0-5 /HPF Ur Squam Epi 3-5 0-2 /HPF Ur Bact Trace None Seen Ur Hyaline Assistant Construction Superintendent 0-2 0-2 /LPF END OF REPORT RUN: 09/06/24756 PAGE 1 [facility] [address] [place] [address] Dewaxer: Dre Ortega M.D. Specimen Inquiry Name: Kiesha Chen Age/Sex: 33/F : 1990 Unit#: [id number] Attend Dr: Kathryn Montes Re09/04/24 Status: DEP REF Location: [facility] Disch: Specimen: [id number] Collected: 09/04/24-UNK Status: COMP Req#: [id number] Received: 09/04/24-1157 [facility] Sp Desc: Clean Cat Subm Dr: Kathryn Montes Ordered: Urine Culture Procedure Result Verified Urine Culture Final 09/05/24 Report Result < 10,000 cfu/ml END OF REPORT Coding Level of Care Code Est Pt Level 2 (33800) Complex EM visit Add On G2211 Diagnoses Bacterial vaginosis N76.0; B96.89 Vaginal pruritus N89.8 Travel advice encounter Z71.84 Assessment & Plan Assessment & Plan (1) Bacterial vaginosis: Code(s): N76.0 - Acute vaginitis; B96.89 - Other specified bacterial agents as the cause of diseases classified elsewhere Category: Medical Plan: . (2) Vaginal pruritus: Code(s): N89.8 - Other specified noninflammatory disorders of vagina Category: Medical (3) Travel advice encounter: Code(s): Z71.84 - Encounter for health counseling related to travel Plan . Medications: New fluconazole take 1 tab day 1, repeat second dose on day 3 150 mg PO Q3D 2 tabs 0RF nitrofurantoin monohyd/m-cryst 100 mg must administer with a meal/food 100 mg PO Q12H 3 days 6 caps 0RF metronidazole 0.75%(37.5mg/5gram) 1 appful vaginal DAILY 5 days 70 grams 0RF
== END 2024-09-06 15:58 | disposition home or self-care (01) ==
LOC: HO.HMCFM 13:58
PROVIDERS: PCP Nurse Practitioner Family; Visit Provider Nurse Practitioner Family
DX: N76.0 Acute vaginitis (principal); B96.89 Other specified bacterial agents as the cause of diseases classified elsewhere; Z71.84 Encounter for health counseling related to travel

== ENCOUNTER → 2024-09-06 13:58 | Outpatient (BNVA) | payer OTHER, SELFPAY | PROVIDERS: PCP Nurse Practitioner Family; Visit Provider Nurse Practitioner Family | DX: N76.0 Acute vaginitis (principal); B96.89 Other specified bacterial agents as the cause of diseases classified elsewhere | CPT/HCPCS: 99212 ==